=== PATIENT | female | born 1965 | race Caucasian/White ===

== ENCOUNTER 2017-09-22 09:21 | Day surgery (SDC) | payer OTHER ==
[~2017-09-22] VITALS: Ht 175.3 cm; Wt 97.1 kg
[~2017-09-22 09:21] MED LIST: NO MEDICATIONS
[2017-09-22] MEDS ORDERED: NS 1,000 ML IV ONE (09:30)
[2017-09-22] MEDS ORDERED: LIDOCAINE 2% INJ 100 MG/5 ML SDV (FOR ANES.) As Ordered ONE (10:29)
[2017-09-22] MEDS ORDERED: PROPOFOL 500 MG/50 ML VIAL As Ordered ONE (10:29)
--- NOTE | 2017-09-22 10:51 | ROOR ---
Patient Name: Isela Lam Procedure Date: 09/22/2017 10:24 AM Date of : 1965 Age: 52 Room: [facility] Gender: Female Note Status: Finalized Procedure: Total Colonoscopy to cecum + Biopsy Polypectomy Indications: High risk colon cancer surveillance: Personal history of colonic polyps, Last colonoscopy: 2013 Providers: Tommy Miles MD Referring MD: Erin Haque NP Requesting Provider: Medicines: Monitored Anesthesia Care Complications: No immediate complications. Procedure: Pre-Anesthesia Assessment: - The heart rate, respiratory rate, oxygen saturations, blood pressure, adequacy of pulmonary ventilation, and response to care were monitored throughout the procedure. The Colonoscope was introduced through the anus and advanced to the cecum, identified by appendiceal orifice and ileocecal valve. The colonoscopy was performed without difficulty. The patient tolerated the procedure well. The quality of the bowel preparation was good. Findings: The perianal and digital rectal examinations were normal. Hemorrhoids were found during retroflexion. The hemorrhoids were small and Grade I (internal hemorrhoids that do not prolapse). Scattered small-mouthed diverticula were found in the recto-sigmoid colon, sigmoid colon and descending colon. A small polyp was found at 50 cm proximal to the anus. The polyp was carpet-like. The polyp was removed with a jumbo cold forceps. Resection and retrieval were complete. A small polyp was found in the hepatic flexure. The polyp was sessile. The polyp was removed with a jumbo cold forceps. Resection and retrieval were complete. The exam was otherwise without abnormality on direct and retroflexion views. Impression: - Hemorrhoids. - Diverticulosis in the recto-sigmoid colon, in the sigmoid colon and in the descending colon. - One small polyp at 50 cm proximal to the anus, removed with a jumbo cold forceps. Resected and retrieved. - One small polyp at the hepatic flexure, removed with a jumbo cold forceps. Resected and retrieved. - The examination was otherwise normal on direct and retroflexion views. - The exam was otherwise normal to the cecum. Recommendation: - Patient has a contact number available for emergencies. The signs and symptoms of potential delayed complications were discussed with the patient. Return to normal activities tomorrow. Written discharge instructions were provided to the patient. - High fiber diet. - Discharge patient to home. - Continue present medications. - Await pathology results. - Telephone GI clinic for pathology results in 1 week. - Repeat colonoscopy for surveillance based on pathology results. - Return to referring physician. - The findings and recommendations were discussed with the patient's family. Tommy Miles MD Tommy Miles MD 09/22/2017 10:51:42 AM This report has been signed electronically. Number of Addenda: 0 Note Initiated On: 09/22/2017 10:24 AM Estimated Blood Loss: Estimated blood loss: none.
[2017-09-22 11:27] VITALS: BP 137/70
== END 2017-09-22 11:25 | disposition home or self-care (01) ==
LOC: M OPP 09:21
PROVIDERS: ATTEND Internal Medicine Gastroenterology
DX: Z12.11 Encounter for screening for malignant neoplasm of colon (principal); Z86.010 Personal history of colon polyps; D12.5 Benign neoplasm of sigmoid colon; D12.3 Benign neoplasm of transverse colon; K64.0 First degree hemorrhoids; K57.30 Diverticulosis of large intestine without perforation or abscess without bleeding; F17.210 Nicotine dependence, cigarettes, uncomplicated

== ENCOUNTER → 2018-03-08 | Outpatient (REF) | payer OTHER ==
[2018-03-09 08:06] LABS: LDL DIRECT 73 mg/dL (0-99)
== END ==
LOC: M LAB REF 12:39
DX: Z13.220 Encounter for screening for lipoid disorders (principal)
CPT/HCPCS: 83721

== ENCOUNTER 2019-04-21 05:45 | Day surgery (SDC) | payer OTHER ==
[~2019-04-21] VITALS: Ht 175.3 cm; Wt 89.7 kg
[~2019-04-21 05:45] MED LIST changes: +PHEN30CA2 PO
[2019-04-21] MEDS ORDERED: LIDOCAINE 1% MDV 20ML VIAL SQ PRN (06:00)
[2019-04-21] MEDS ORDERED: LR 1,000 ML IV ONE (06:00)
[2019-04-21 06:58] LABS: URINE PREG TEST NEGATIVE (NEGATIVE)
[2019-04-21] MEDS ORDERED: BUPIVACAINE HCL 0.5% 10 ML VIAL As Ordered ONE ×2 (07:00→07:49)
[2019-04-21] MEDS ORDERED: dexameTHASONE 4 MG/ML 1ML VIAL (J1100) As Ordered ONE (07:00)
[2019-04-21] MEDS ORDERED: LIDOCAINE 2% MDV 20 ML VIAL As Ordered ONE (07:01)
[2019-04-21] MEDS ORDERED: BACITRACIN PWD 50,000 UNITS VIAL As Ordered ONE (07:01)
[2019-04-21] MEDS ORDERED: NEOSPORIN GU IRRIG 20 ML VIAL As Ordered ONE (07:02)
[2019-04-21] MEDS ORDERED: MIDAZOLAM INJ 2 MG/2 ML VIAL (J2250) As Ordered ONE (07:45)
[2019-04-21] MEDS ORDERED: GLYCOPYRROLATE INJ 0.2 MG/ML 2 ML VIAL As Ordered ONE (07:45)
[2019-04-21] MEDS ORDERED: fentaNYL 100 MCG/2 ML INJECTION (J3010) As Ordered ONE (07:45)
[2019-04-21] MEDS ORDERED: ONDANSETRON 4MG/2ML VIAL (J2405) As Ordered ONE (07:45)
[2019-04-21] MEDS ORDERED: KETAMINE HCL 200 MG/20 ML VIAL As Ordered ONE ×3 (07:45→09:04)
[2019-04-21] MEDS ORDERED: LIDOCAINE 2% INJ 100 MG/5 ML SDV (FOR ANES.) As Ordered ONE (07:45)
[2019-04-21] MEDS ORDERED: PROPOFOL 200 MG/20 ML VIAL As Ordered ONE ×5 (07:45→09:10)
[2019-04-21 10:15] VITALS: BP 177/86
[2019-04-21] MEDS ORDERED: fentaNYL 100 MCG/2 ML INJECTION (J3010) IV PRN (10:30)
[2019-04-21] MEDS ORDERED: oxyCODONE 5MG TAB PO PRN (10:30)
[2019-04-21] MEDS ORDERED: LR 1,000 ML IV SCH (10:30)
--- NOTE | 2019-04-21 10:34 | REP ---
Left foot: Three views. History: Postop. Findings: Three views of the left foot are obtained through overlying cast material. The patient is status post first and fifth metatarsal bunion repair with osteotomies and metallic pins and screws in place. There is a plantar calcaneal spur. Electronically Signed by Isiah Baron MD 04/21/2019 12:32 P
--- NOTE | 2019-04-23 13:08 | RO ---
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 PROCEDURES PERFORMED: 1. John bunionectomy, internal screw fixation 3.0 x 22 mm x 1 left foot. 2. Bunionette procedure with distal and elevational Ludloff-type osteotomy with internal screw fixation. The fixation is 2.4 headed screw fixation x 10 and a 0.86 mm wire. SURGEON: Dr. Sony Foreman DPM MILK CONDENSER: None. ANESTHESIA: Local monitored anesthesia care (MAC). IRRIGATION: Dilute bacitracin, neomycin and polymyxin B solution. HEMOSTASIS: Ankle pneumatic tourniquet at 250 mmHg for 100 minutes. DESCRIPTION OF PROCEDURE: On 04/21/2019, this 53-year-old white female was taken from her hospital room to the operating room and placed on the operating table in the supine position. Following the induction of IV sedation and local and regional anesthesia, the left lower extremity was prepped and draped in the usual aseptic manner. Attention was directed to the patient's foot where there was noted to be a hallux valgus deformity. At this time, a 5 cm incision was placed over the 1st metatarsophalangeal joint lateral to the extensor tendon. The incision was deepened through the subcutaneous tissues and all coursing venous tributaries were identified, underscored, clamped, cut, ligated and electrocoagulated as necessary. A linear capsulotomy was performed in the same plane as the original skin incision, and the capsular and periosteal structures were dissected free dorsally, medially, and laterally thus creating a capsular periosteal-type envelope. This delivered into view the hypertrophied medial eminence of the 1st metatarsal, which was osteotomized from distal to proximal, through and through and extirpated from the wound in toto. Dissection was then carried into the 1st intermetatarsal space where dissection was carried down to the level of the fibular sesamoid where the conjoined tendon was sharply dissected free from the fibular sesamoid. Attention was directed to the medial surface of the 1st metatarsal, and a V-shaped osteotomy was performed with a long plantar and short dorsal wing. Upon creation of the osteotomy in the distal metaphysis of the 1st metatarsal, the osteotomy was transposed approximately 40% of the width of the shaft of the 1st metatarsal and fixated with an Arthrex headless 3.0 x 22 mm cannulated compression screw. The osteotomy was noted to be stable in all three cardinal planes. The redundant cortical spike was osteotomized from dorsal to plantar, through and through, and extirpated from the wound in toto. The medial surface was rasped to a smooth contour with a handheld rasp. The wound was flushed with copious amounts of dilute bacitracin, neomycin and polymyxin B solution. Attention was directed towards closure where the capsular structures were coapted and maintained utilizing #2-0 Monocryl in a simple interrupted type fashion. Subcutaneous tissue coapted and maintained utilizing #4-0 Monocryl in a simple interrupted type fashion. Skin incisions coapted and maintained utilizing #5-0 Monocryl in a continuous subcuticular type fashion. Attention was then directed to the lateral surface of the foot where the following procedure was performed; BUNIONETTE PROCEDURE WITH LUDLOFF OSTEOTOMY AND INTERNAL SCREW AND PIN FIXATION LEFT FOOT: Attention was directed to the patient's left foot. There was noted to be a hyperkeratotic lesion present on the distal lateral aspect of the 5th metatarsal head. At this time, a 6 cm incision was placed on the lateral surface of the 5th metatarsophalangeal joint. The incision was deepened through subcutaneous tissues and all coursing venous tributaries were identified, underscored, clamped, cut, ligated and electrocoagulated as necessary. A linear capsulotomy was performed in the same plane as the original skin incision. The capsular and periosteal structures were then dissected free in one continuous layer dorsally, medially and laterally, thus creating a capsular periosteal type envelope. This delivered into view the hypertrophied lateral eminence of the 5th metatarsal, which was osteomized from distal to proximal, through and through. Attention was then directed to the shaft of the 5th metatarsal where Ludloff osteotomy was performed. It was orientated with the distal cut being inferior and the superior cut present proximally. The osteotomy was angled in such a way that medial positioning would give elevational displacement of the 5th metatarsal head. The osteotomy was fixated at the distal end with a K-wire, and the distal aspect of the cut was then completed. This allowed swiveling of the distal fragment, and this was swiveled, reducing the intermetatarsal angle as well as elevating the 5th metatarsal. This was then fixated with a 2.5 x 10 mm headed compression screw. Additional fixation was then obtained with a 3.0 x 22 mm compression screw. This distal screw was providing good compression; however, on tightening of the more proximal screw, there was noted to be a crack along the superior aspect of the osteotomy. This was rongeured away giving little hold of the more proximal screw. Utilizing a K-wire, a fixation was obtained on the more proximal segment. Utilizing C-arm imagery, good reduction and position of the hardware was noted. The wound was flushed with copious amounts of dilute bacitracin, neomycin and polymyxin B solution. Capsular closure was obtained with #2-0 Monocryl in a simple interrupted type fashion. Subcutaneous tissues were coapted and maintained utilizing #4-0 Monocryl in a simple interrupted type fashion, skin incisions were coapted and maintained utilizing #5-0 Monocryl in a continuous subcuticular type fashion. This was additionally reinforced with Steri-Strips. Attention was directed towards bandaging where a compressive bandage was applied consisting of Adaptic, 4 x 4s, 4 x 4 splints, Diana and Kerlix. A well-molded fiberglass cast was then placed on the patient's foot with the foot at a ring angle to the lower leg. Upon deflation of the tourniquet, instantaneous capillary filling time was noted to the patient's left foot. The patient having apparently tolerated the surgical procedure well was taken from the operating room (OR) to the recovery room for further monitoring by the anesthesia department. KING
== END 2019-04-21 11:48 | disposition home or self-care (01) ==
LOC: M SDC 05:45
PROVIDERS: ATTEND Podiatrist
DX: M21.622 Bunionette of left foot (principal); L84 Corns and callosities; M20.12 Hallux valgus (acquired), left foot; M79.672 Pain in left foot; Z79.899 Other long term (current) drug therapy; F17.210 Nicotine dependence, cigarettes, uncomplicated
CPT/HCPCS: 28110; 28296; 73630; 84703; 88300; 97116; C1713; J0690; J1100; J2250; J2405; J3010

== ENCOUNTER → 2020-01-05 | Outpatient (REF) | payer BC ==
[~2020-01-05] MED LIST changes: +ACET1TAB55 PO; +AUGM875T28 PO; +CLEO300C2 PO; +PROB1CAP10 PO
== END ==
LOC: M LAB REF 19:59
PROVIDERS: ATTEND Physician Assistant
DX: J02.9 Acute pharyngitis, unspecified (principal)

== ENCOUNTER 2020-01-06 18:39 | Inpatient (IN) | payer BC ==
[~2020-01-06] VITALS: Ht 175.3 cm; Wt 90.2 kg
[~2020-01-06 18:39] MED LIST changes: -ACET1TAB55 PO; -AUGM875T28 PO; -CLEO300C2 PO; -PROB1CAP10 PO
[2020-01-06] MEDS ORDERED: AUGM875T28 PO (18:48)
[2020-01-06] MEDS ORDERED: NS 1,000 ML IV ONE (19:30)
[2020-01-06] MEDS ORDERED: ACETAMINOPHEN 325 MG TAB PO ONE (19:45)
[2020-01-06 19:46] LABS: HEMATOCRIT 44.3 % (36.0-47.0); HEMOGLOBIN 14.8 g/dl (12.0-15.5); MEAN CORPUSCULAR HEMOGLOBIN 31.2 pg (27.0-33.0); MEAN CORPUSCULAR HGB CONC 33.4 g/dl (32.0-36.5); MEAN CORPUSCULAR VOLUME 93.5 fl (80.0-96.0); PLATELET COUNT, AUTOMATED 292 10^3/uL (150-450); RED BLOOD COUNT 4.74 10^6/uL (4.00-5.40); WHITE BLOOD COUNT 16.3 10^3/uL (4.0-10.0)
[2020-01-06 19:56] LABS: INR 1.07; PROTHROMBIN TIME 13.6 SECONDS (11.8-14.0)
[2020-01-06 20:15] LABS: BLOOD UREA NITROGEN 10 MG/DL (7-18); CALCIUM LEVEL 8.8 MG/DL (8.5-10.1); CARBON DIOXIDE LEVEL 24 MEQ/L (21-32); CHLORIDE LEVEL 105 MEQ/L (98-107); GLOMERULAR FILTRATION RATE > 60.0 (>51); GLUCOSE, FASTING 120 MG/DL (70-100); SODIUM LEVEL 138 MEQ/L (136-145)
[2020-01-06] MEDS ORDERED: ISOVUE-370 76% 100ML VIAL (Q9967) As Ordered ONE (20:30)
--- NOTE | 2020-01-06 21:07 | REPVR ---
PROCEDURE INFORMATION: Exam: CT Neck With Contrast Exam date and time: 01/06/2020 8:36 PM Age: 54 years old Clinical indication: Throat pain; Additional info: Left abscess TECHNIQUE: Imaging protocol: Computed tomography images of the neck with intravenous contrast. Radiation optimization: All CT scans at this facility use at least one of these dose optimization techniques: automated exposure control; mA and/or kV adjustment per patient size (includes targeted exams where dose is matched to clinical indication); or iterative reconstruction. Contrast material: ISOVUE 370; Contrast volume: 75 ml; Contrast route: IV; COMPARISON: No relevant prior studies available. FINDINGS: Sinuses: Mild mucosal thickening of the left maxillary sinus. Minimal mucosal thickening of a few left ethmoid air cells. Nasopharynx: Unremarkable. Oropharynx: There is swelling of the left palatine tonsil. within this region and extending to the soft palate, there is an area of hypodensity measuring approximately 2.5 x 1.4 x 1.3 cm. This is concerning for abscess. Phlegmonous change is within the differential. There is associated mild narrowing of the airway. Hypopharynx: There is effacement of the left pyriform sinus. Abnormal hypodensity is identified within this region, likely representing phlegmonous change although abscess cannot be excluded. There is swelling of the posterior hypopharyngeal wall, most significant on the left side. This swelling extends to the retropharyngeal region. Larynx: There is effacement of the left vallecula, with swelling. Retropharyngeal space: See above. Submandibular/Parotid glands: Unremarkable. Glands are normal in size. Thyroid: Hypodense thyroid nodules are identified, the largest measuring 9 mm within the right thyroid lobe. Lymph nodes: Enlarged left level 2, 3, and 5 cervical lymph nodes are identified. A left level 3 lymph node measures 1.3 by 0.6 cm. Scattered additional small cervical lymph nodes are identified. Trachea: Unremarkable. Lungs: Unremarkable as visualized. Bones/joints: Slight reversal of the lordotic curvature of the cervical spine. Spondylosis identified within the cervical and upper thoracic spine. Soft tissues: Swelling of the soft tissues of the neck on the left side. IMPRESSION: 1. There is swelling of the left palatine tonsil. within this region and extending to the soft palate, there is an area of hypodensity measuring approximately 2.5 x 1.4 x 1.3 cm. This is concerning for abscess. Phlegmonous change is within the differential. There is associated mild narrowing of the airway. 2. Swelling of the soft tissues of the neck on the left side. 3. There is effacement of the left vallecula, with swelling. 4. There is effacement of the left pyriform sinus. Abnormal hypodensity is identified within this region, likely representing phlegmonous change, although abscess cannot be excluded. 5. Enlarged left level 2, 3, and 5 cervical lymph nodes are identified. 6. There is swelling of the posterior hypopharyngeal wall, most significant on the left side. This swelling extends to the retropharyngeal region. 7. Hypodense thyroid nodules are identified, the largest measuring 9 mm within the right thyroid lobe. 8. Additional findings described above. COMMENTS: Consistent with the [employer]'s Incidental Findings Committee white paper (J Am Vishal Radiol 2015): In patients aged 35 years and older with an incidental thyroid nodule equal to or greater than 1.[address], MRI or extrathyroidal US, further evaluation with dedicated thyroid US is recommended for patients with normal life expectancy and without comorbidities. For smaller nodules without suspicious features, no further evaluation or follow up is recommended. Electronically signed by: Alec Berger On 01/06/2020 21:06:40 PM
[2020-01-06] MEDS ORDERED: PIPERACILLIN/TAZOBACTAM SOD 3.375 GM in D5W MINI-BAG PLUS 50 ML IV ONE (21:15)
[2020-01-06] MEDS ORDERED: KETOROLAC 30 MG/ML VIAL (J1885) IV PRN (22:15)
[2020-01-06] MEDS ORDERED: ACETAMINOPHEN TAB 650MG DOSE (2X325MG) PO PRN (22:15)
--- NOTE | 2020-01-06 22:48 | HPEPDOC ---
[facility] Medical History & Physical Date of Admission Jan 06, 2020 Date of Service: Jan 06, 2020 Primary Care Physician: Erin Haque Attending Physician: VISHAL CARDONA MD History and Physical CHIEF COMPLAINT: Sore throat HISTORY OF PRESENT ILLNESS: Patient is a 54 year old female who presented to the [facility] ER with complaint of worsening throat and swelling. She states that about one week ago she had developed a sore throat. She had originally presented to the Urgent Care where she received a shot of Rocephin and a course of Augmentin. She stated that since that time she continued to have a sore throat and noticed some difficulty swallowing liquids. She returned to the Urgent Care on Wednesday where she received a second shot of Rocephin. She was then instructed that if her sore throat did not improve by the next day to report to the ER. Today the patient reports to the ER as she has a continued sore throat described as sharp in pain. She states that she does not choke and has no issues breathing however it is a little more difficult to swallow liquids. She denies any chills however states that urgent care had told her she had a fever. She denies any nausea, vomiting, diarrhea or constipation. She denies any history of tooth abscess. She denies any foul smelling breath or drainage in her throat. In the ER the patient was found to be hypertensive but otherwise vitally stable. She received tylenol for pain which helped relieve her hypertension. She had a leukocytosis of 16.3. She received a head and neck CT which demonstrated swelling of the left palatine tonsil extending to the soft palate and a hypodense area measuring 2.5 x 1.4 x 1.3 cm concerning for an abscess formation. ENT was contacted through the ER with recommendations to start the patient on Zosyn. Hospitalist service was consulted for further evaluation and management. PAST MEDICAL HISTORY: 1. Varicose Veins PAST SURGICAL HISTORY: 1. Left Foot Bunion Surgery 2. Bilateral Vein Stripping 3. Colonoscopy ~ 5 years ago SOCIAL HISTORY: Patient lives at home with her boyfriend. 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 She is a current smoker and started smoking at the age of 16. She smokes about 1/2 packs per day. She drinks alcohol on occasion. She denies any history of IV or illicit drug use FAMILY HISTORY: Patients mother and father are alive and well. She denies any medical conditions in her mother. Her father has a history of a TIA in the past ALLERGIES: Please see below. REVIEW OF SYSTEMS: CONSTITUTIONAL: Admits to fever. Denies chills. Denies unintentional weightloss. Denies night sweats HEENT: Admits to sore throat. Admits to difficulty swallowing liquids. Denies choking or coughing. Admits to mild tenderness on the left side of her neck CARDIOVASCULAR: Denies chest pain, palpitations, or feelings of he heart racing RESPIRATORY: Denies shortness of breath. Denies coughing or wheezing GASTROINTESTINAL: Denies abdominal pain. Denies diarrhea, constipation, nausea, or vomiting GENITOURINARY: Denies dysuria, urgency, or increased frequency SKIN: Denies any rashes or lesions MUSCULOSKELETAL: Denies any muscle pain or weakness NEUROLOGICAL: Denies any changes in speech or gait. PSYCHIATRIC: Denies depression or anxiety ENDOCRINE: Denies heat or cold intolerance. Denies history of diabetes HEMATOLOGIC/LYMPHATIC: Denies easy bruising or bleeding. Denies history of DVT or PE HOME MEDICATIONS: Please see below. PHYSICAL EXAMINATION: VITAL SIGNS: Temperature 100.1, pulse 122, respiratory rate 24, blood pressure 186/85, pulse oximetry 97% on room air. GENERAL APPEARANCE: Patient is awake, alert, and oriented. She is lying in bed comfortably. She does not appear in any acute distress. HEENT: Left sided facial swelling. Palpable submandibular and superficial cervical lymphadenopathy on the left. Oral examination reveals Mallampati score of II-III worsened by left tonsillar swelling with slight deviation of the uvula to the right. The posterior pharynx is mildly erythematous. There is no pasquale puss or drainage. Dentition appears within normal limits. Phonation is normal without any muffling CARDIOVASCULAR: Normal S1, S2. Slightly tachycardic. Regular rhythm. No clicks rubs or murmurs LUNGS: Clear vesicular breath sounds bilaterally with good respiratory effort. No wheezes, rhonchi, or rales. ABDOMEN: Soft, nondistended. Nontender. No rebound tenderness or guarding. Normoactive bowel sounds throughout EXTREMITIES: No edema. Varicose veins bilaterally. Full and equal pulses in bila teral upper and lower extremities NEUROLOGICAL: No focal neurological deficits PSYCHIATRIC: Mood and affect appear appropriate LABORATORY DATA: See below. IMAGING: PROCEDURE INFORMATION: Exam: CT Neck With Contrast Exam date and time: 01/06/2020 8:36 PM Age: 54 years old Clinical indication: Throat pain; Additional info: Left abscess TECHNIQUE: Imaging protocol: Computed tomography images of the neck with intravenous contrast. Radiation optimization: All CT scans at this facility use at least one of these dose optimization techniques: automated exposure control; mA and/or kV adjustment per patient size (includes targeted exams where dose is matched to clinical indication); or iterative reconstruction. Contrast material: ISOVUE 370; Contrast volume: 75 ml; Contrast route: IV; COMPARISON: No relevant prior studies available. FINDINGS: Sinuses: Mild mucosal thickening of the left maxillary sinus. Minimal mucosal thickening of a few left ethmoid air cells. Nasopharynx: Unremarkable. Oropharynx: There is swelling of the left palatine tonsil. within this region and extending to the soft palate, there is an area of hypodensity measuring approximately 2.5 x 1.4 x 1.3 cm. This is concerning for abscess. Phlegmonous change is within the differential. There is associated mild narrowing of the airway. Hypopharynx: There is effacement of the left pyriform sinus. Abnormal hypodensity is identified within this region, likely representing phlegmonous change although abscess cannot be excluded. There is swelling of the posterior hypopharyngeal wall, most significant on the left side. This swelling extends to the retropharyngeal region. Larynx: There is effacement of the left vallecula, with swelling. Retropharyngeal space: See above. Submandibular/Parotid glands: Unremarkable. Glands are normal in size. Thyroid: Hypodense thyroid nodules are identified, the largest measuring 9 mm within the right thyroid lobe. Lymph nodes: Enlarged left level 2, 3, and 5 cervical lymph nodes are identified. A left level 3 lymph node measures 1.3 by 0.6 cm. Scattered additional small cervical lymph nodes are identified. Trachea: Unremarkable. Lungs: Unremarkable as visualized. Bones/joints: Slight reversal of the lordotic curvature of the cervical spine. Spondylosis identified within the cervical and upper thoracic spine. Soft tissues: Swelling of the soft tissues of the neck on the left side. IMPRESSION: 1. There is swelling of the left palatine tonsil. within this region and extending to the soft palate, there is an area of hypodensity measuring approximately 2.5 x 1.4 x 1.3 cm. This is concerning for abscess. Phlegmonous change is within the differential. There is associated mild narrowing of the airway. 2. Swelling of the soft tissues of the neck on the left side. 3. There is effacement of the left vallecula, with swelling. 4. There is effacement of the left pyriform sinus. Abnormal hypodensity is identified within this region, likely representing phlegmonous change, although abscess cannot be excluded. 5. Enlarged left level 2, 3, and 5 cervical lymph nodes are identified. 6. There is swelling of the posterior hypopharyngeal wall, most significant on the left side. This swelling extends to the retropharyngeal region. 7. Hypodense thyroid nodules are identified, the largest measuring 9 mm within the right thyroid lobe. 8. Additional findings described above. COMMENTS: Consistent with the [employer]'s Incidental Findings Committee white paper (J Am Vishal Radiol 2015): In patients aged 35 years and older with an incidental thyroid nodule equal to or greater than 1.[address], MRI or extrathyroidal US, further evaluation with dedicated thyroid US is recommended for patients with normal life expectancy and without comorbidities. For smaller nodules without suspicious features, no further evaluation or follow up is recommended. Electronically signed by: Alec Berger On 01/06/2020 21:06:40 PM MICROBIOLOGY: Please see below. ASSESSMENT: Patient is a 54 year old female presenting to the [facility] ER with complaint of worsening sore throat who was found to have a left sided peritonsillar abscess and failed outpatient antibiotic therapy . PLAN: 1. Left sided Peritonsillar Abscess -Left sided peritonsillar abscess on CT imaging. Patient has failed outpa tient antibiotics therapy with Rocephin and Augmentin -ENT consulted through ER and stated they will see the patient in the morning. Recommendations to start Zosyn while inpatient -Tylenol for pain and Fever -Toradol for Pain PRN -Mallampati score 2-3 complicated by left tonsillar swelling with right uvula deviation. No emergent threat to airway -Throat Cultures pending -CRP pending 2. Leukocytosis -Likely secondary to patients left sided peritonsillar abscess. Will continue to trend with therapy 3. Hypertension likely 2/2 pain -Patient denies history of hypertension. She is on no antihypertensives at home. On arrival her BP was 185/85. This was likely secondary to pain. Her BP has decreased to 136/63 with Tylenol. Will continue to monitor 4. DVT Prophylaxis -TEDS and Sequentials ATTENDING PHYSICIAN ATTESTATION: I performed a history and physical exam of the patient and discussed her management with the resident. I reviewed the resident's note and agree with the documented findings and plan of care as written above. Exceptions include the followinF with no relevant medical history, presents to the ER after failed outpatient treatment for peritonsillar abscess. Imaging reveals large peritonsillar abscess on the left side. On exam, left sided, tonsils appear to be swollen but has been no obstruction in her airway. She is saturating on a percent on room air at this time and able to speak in complete sentences. ENT evaluation was called for by the ER and will see in the morning. Patient to be started on IV Zosyn and pain control be given with Toradol as needed. Rest. The plan as per above Vital Signs Vital Signs Date Time Temp Pulse Resp B/P (MAP) Pulse Ox O2 Delivery O2 Flow Rate FiO2 01/06/20 21:59 100.1 01/06/20 19:44 01/06/20 18:39 122 24 97 Room Air Laboratory Data Labs 24H Laboratory Tests 2 01/06/20 19:38: Nucleated Red Blood Cells % (auto) 0.0, Prothrombin Time 13.6, Prothromb Time I nternational Ratio 1.07, Anion Gap 9, Glomerular Filtration Rate > 60.0, Calcium Level 8.8 CBC/BMP Laboratory Tests 01/06/20 19:38 Microbiology Microbiology 01/06/20 Blood Culture, Received Pending Home Medications Scheduled Amoxicillin/Potassium Clav (Augmentin 875-125 Tablet) 1 Each Tablet, 1 TAB PO BID Allergies Coded Allergies: No Known Allergies (Unverified , 09/21/17) A-FIB/CHADSVASC A-FIB History Current/History of A-Fib/PAF?: No BUSTER HAUSER DO Jan 06, 2020 22:48 VISHAL CARDONA MD Jan 06, 2020 23:51
[2020-01-06 23:38] VITALS: BP 152/77
[2020-01-07] MEDS: PIPERACILLIN/TAZOBACTAM SOD 3.375 GM in D5W MINI-BAG PLUS 50 ML IV SCH ×4 (03:50→22:35)
[2020-01-07 05:25] LABS: HEMOGLOBIN 13.5 g/dl (12.0-15.5); MEAN CORPUSCULAR HEMOGLOBIN 31.5 pg (27.0-33.0); MEAN CORPUSCULAR HGB CONC 32.9 g/dl (32.0-36.5); MEAN CORPUSCULAR VOLUME 95.6 fl (80.0-96.0); PLATELET COUNT, AUTOMATED 258 10^3/uL (150-450); RED BLOOD COUNT 4.29 10^6/uL (4.00-5.40); WHITE BLOOD COUNT 11.3 10^3/uL (4.0-10.0)
[2020-01-07 05:44] LABS: BLOOD UREA NITROGEN 9 MG/DL (7-18); CALCIUM LEVEL 8.5 MG/DL (8.5-10.1); CARBON DIOXIDE LEVEL 26 MEQ/L (21-32); CHLORIDE LEVEL 106 MEQ/L (98-107); CREATININE FOR GFR 0.64 MG/DL (0.55-1.30); GLOMERULAR FILTRATION RATE > 60.0 (>51); GLUCOSE, FASTING 104 MG/DL (70-100); SODIUM LEVEL 138 MEQ/L (136-145)
[2020-01-07 08:00] VITALS: BP 148/82
--- NOTE | 2020-01-07 13:18 | IPNPDOC ---
Date Seen The patient was seen on 01/07/20. Progress Note SUBJECTIVE: Pain with swallowing still and patient states that fluids " go up her nose" when she is trying to swallow. ENT to see today. Denies shortness of breath, n/v/d, fevers since last evening. OBJECTIVE: VITAL SIGNS: Please see below PHYSICAL EXAMINATION: CONSTITUTIONAL: No acute distress, resting comfortably, AAO x 3 EYES: PERRLA, EOM intact HENT, MOUTH: Normocephalic, moist mucous membranes, beefy red left tonsil with uvula deviation. No exudate noticed, no draining lesion. NECK: SUPPLE, no JVD, no lymphadenopathy, no carotid bruit CV: Regular rate and rhythm, S1S2 normal, no murmurs/rubs/gallops RESPIRATORY: Clear to auscultation bilaterally, no rales/rhonchi/wheezes GI: BS positive in 4 quadrants, soft, nontender, nondistended, no rebound or guarding, no organomegaly : Deferred MUSCULOSKELETAL: Normal ROM. No cyanosis, clubbing, swelling, joint deformity, extremity edema INTEGUMENTARY: Intact, no rashes, no lesions, no erythema NEUROLOGIC: Cranial Nerves II-XII are intact, no focal deficits PSYCHIATRIC: Mood and affect are normal CURRENT MEDICATIONS: Please see below LABORATORY DATA: Please see below IMAGING: No new imaging. ASSESSMENT: 54 y/o F admitted under inpatient status for left peritonsillar abscess. PLAN: 1. Left peritonsillar abscess. WBC improving, afebrile since 9 PM 01/06/20; however, still difficulty swallowing. ENT to assess today. Starting on dexamet hasone 8 mg PO Q8hrs, C/w zosyn, tylenol, toradol, clear liquid diet, daily labs. F/u throat culture. 2. HTN. Stable. 3. DVT px. SCDs, TEDs. DISPOSITION: Admitted under inpatient status. Plan is discharge home when medically improved. VS, I&O, 24H, Fishbone Vital Signs/I&O Vital Signs Date Time Temp Pulse Resp B/P (MAP) Pulse Ox O2 Delivery O2 Flow Rate FiO2 01/07/20 08:00 97.1 89 18 148/82 (104) 97 Room Air I&O- Last 24 Hours up to 6 AM 01/07/20 06:00 Intake Total 1100 ml Output Total 300 ml Balance 800 ml Laboratory Data 24H LABS Laboratory Tests 2 01/06/20 19:38: Nucleated Red Blood Cells % (auto) 0.0, Prothrombin Time 13.6, Prothromb Time International Ratio 1.07, Anion Gap 9, Glomerular Filtration Rate > 60.0, Calcium Level 8.8, C-Reactive Protein, Quantitative 13.20H 01/07/20 04:57: Nucleated Red Blood Cells % (auto) 0.0, Anion Gap 6L, Glomerular Filtration Rate > 60.0, Calcium Level 8.5 CBC/BMP Laboratory Tests 01/06/20 19:38 01/07/20 04:57 Microbiology Microbiology 01/06/20 Eye/Ear/Nose/Throat Culture, Received Pending 01/06/20 Blood Culture, Received Pending Current Medications Current Medications Medications (Trade) Dose Ordered Sig/Julián Route PRN Reason Start Time Stop Time Status Last Admin Dose Admin Acetaminophen (Tylenol Tab) 650 mg Q6HP PRN PO PAIN / FEVER 01/06/20 22:15 01/07/20 10:12 Home Med (Med Rec Complete!) ASDIRECTED XX 01/06/20 22:30 01/06/20 22:20 DC Ketorolac Tromethamine (ToRADol) 15 mg Q6H PRN IV PAIN 01/06/20 22:15 01/11/20 22:14 Piperacillin Sod/ Tazobactam Sod 3.375 gm/Dextrose 50 ml @ 50 mls/hr Q6H IV 01/07/20 04:00 01/07/20 10:05 Allergies Coded Allergies: No Known Allergies (Unverified , 09/21/17) Guerda Benedict MD Jan 07, 2020 13:18
[2020-01-07] MEDS: dexameTHASONE 4 MG/ML 1ML VIAL (J1100) IV SCH ×2 (15:28→22:13)
[2020-01-07 16:45] VITALS: BP 128/63
[2020-01-07 20:00] VITALS: BP 115/56
[2020-01-08 04:00] VITALS: BP 128/75
[2020-01-08] MEDS: PIPERACILLIN/TAZOBACTAM SOD 3.375 GM in D5W MINI-BAG PLUS 50 ML IV SCH ×2 (04:17→09:41)
[2020-01-08] MEDS: dexameTHASONE 4 MG/ML 1ML VIAL (J1100) IV SCH (05:50)
[2020-01-08 06:24] LABS: HEMATOCRIT 42.5 % (36.0-47.0); HEMOGLOBIN 14.3 g/dl (12.0-15.5); MEAN CORPUSCULAR HEMOGLOBIN 31.6 pg (27.0-33.0); MEAN CORPUSCULAR HGB CONC 33.6 g/dl (32.0-36.5); PLATELET COUNT, AUTOMATED 311 10^3/uL (150-450); RED BLOOD COUNT 4.52 10^6/uL (4.00-5.40); WHITE BLOOD COUNT 7.3 10^3/uL (4.0-10.0)
[2020-01-08 06:51] LABS: BLOOD UREA NITROGEN 13 MG/DL (7-18); CALCIUM LEVEL 9.2 MG/DL (8.5-10.1); CARBON DIOXIDE LEVEL 27 MEQ/L (21-32); CHLORIDE LEVEL 103 MEQ/L (98-107); CREATININE FOR GFR 0.69 MG/DL (0.55-1.30); GLOMERULAR FILTRATION RATE > 60.0 (>51); GLUCOSE, FASTING 136 MG/DL (70-100); POTASSIUM SERUM 4.5 MEQ/L (3.5-5.1); SODIUM LEVEL 137 MEQ/L (136-145)
[2020-01-08 08:07] LABS: C REACTIVE PROTEIN QUANTITATIV 6.73 MG/DL (0.00-0.30)
[2020-01-08 09:00] VITALS: BP 134/75
[2020-01-08 09:12] LABS: ERYTHROCYTE SEDIMENTATION RATE 56 mm/hr (0-30)
[2020-01-08] MEDS ORDERED: ACET1TAB55 PO (10:03)
[2020-01-08] MEDS ORDERED: CLEO300C2 PO (10:03)
[2020-01-08] MEDS ORDERED: PROB1CAP10 PO (10:03)
--- NOTE | 2020-01-08 14:20 | DS.PDOC ---
Discharge Summary General Date of Admission Jan 06, 2020 at 22:44 Date of Discharge 01/08/20 Primary Care Physician: Erin Haque Attending Physician: Guerda Benedict MD Discharge Summary HISTORY OF PRESENT ILLNESS: Patient is a 54 year old female who presented to the [facility] ER with complaint of worsening throat and swelling. She states that about one week ago she had developed a sore throat. She had originally presented to the Urgent Care where she received a shot of Rocephin and a course of Augmentin. She stated that since that time she continued to have a sore throat and noticed some difficulty swallowing liquids. She returned to the Urgent Care on Wednesday where she received a second shot of Rocephin. She was then instructed that if her sore throat did not improve by the next day to report to the ER. Today the patient reports to the ER as she has a continued sore throat described as sharp in pain. She states that she does not choke and has no issues breathing however it is a little more difficult to swallow liquids. She denies any chills however states that urgent care had told her she had a fever. She denies any nausea, vomiting, diarrhea or constipation. She denies any history of tooth abscess. She denies any foul smelling breath or drainage in her throat. In the ER the patient was found to be hypertensive but otherwise vitally stable. She received tylenol for pain which helped relieve her hypertension. She had a leukocytosis of 16.3. She received a head and neck CT which demonstrated swelling of the left palatine tonsil extending to the soft palate and a hypodense area measuring 2.5 x 1.4 x 1.3 cm concerning for an abscess formation. ENT was contacted through the ER with recommendations to start the patient on Zosyn. Hospitalist service admitted further evaluation and management. HOSPITAL COURSE: Patient received high dose zosyn, tylenol, dexamethasone Q8 hrs during her admission. WBC improved, she remained afebrile over 24 hours. ENT reviewed the CT but did not see a concern for drainage or further intervention outside of IV antibiotics. Swelling decreased significantly and pain with swallowing improved. On 12/12/19 after receiving 2 days of high dose abx, patient was discharged home with clindamycin 600 mg PO Q8 hrs x 14 days, probiotic BID. Patient is encouraged to f/u with PCP in 1-2 weeks after day of discharge. If she should have any increased shortness of breath, fever, chills, increased sore throat or difficulty swallowing she should come to ER immediately. REVIEW OF SYSTEMS: CONSTITUTIONAL: Denies chills, fevers. Denies unintentional weightloss. Denies night sweats HEENT: Denies choking or coughing. CARDIOVASCULAR: Denies chest pain, palpitations, or feelings of he heart racing RESPIRATORY: Denies shortness of breath. Denies coughing or wheezing GASTROINTESTINAL: Denies abdominal pain. Denies diarrhea, constipation, nausea, or vomiting GENITOURINARY: Denies dysuria, urgency, or increased frequency SKIN: Denies any rashes or lesions MUSCULOSKELETAL: Denies any muscle pain or weakness NEUROLOGICAL: Denies any changes in speech or gait. PSYCHIATRIC: Denies depression or anxiety ENDOCRINE: Denies heat or cold intolerance. Denies history of diabetes HEMATOLOGIC/LYMPHATIC: Denies easy bruising or bleeding. Denies history of DVT or PE PAST MEDICAL HISTORY: 1. Varicose Veins PAST SURGICAL HISTORY: 1. Left Foot Bunion Surgery 2. Bilateral Vein Stripping 3. Colonoscopy ~ 5 years ago SOCIAL HISTORY: Patient lives at home with her boyfriend. 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 She is a current smoker and started smoking at the age of 16. She smokes about 1/2 packs per day. She drinks alcohol on occasion. She denies any history of IV or illicit drug use FAMILY HISTORY: Patients mother and father are alive and well. She denies any medical conditions in her mother. Her father has a history of a TIA in the past ALLERGIES: Please see below. PHYSICAL EXAMINATION: CONSTITUTIONAL: No acute distress, resting comfortably, AAO x 3 EYES: PERRLA, EOM intact HENT, MOUTH: Normocephalic, moist mucous membranes, decreased redness and swelling of left tonsil with uvula deviation. No exudate noticed, no draining lesion. NECK: SUPPLE, no JVD, no lymphadenopathy, no carotid bruit CV: Regular rate and rhythm, S1S2 normal, no murmurs/rubs/gallops RESPIRATORY: Clear to auscultation bilaterally, no rales/rhonchi/wheezes GI: BS positive in 4 quadrants, soft, nontender, nondistended, no rebound or guarding, no organomegaly : Deferred MUSCULOSKELETAL: Normal ROM. No cyanosis, clubbing, swelling, joint deformity, extremity edema INTEGUMENTARY: Intact, no rashes, no lesions, no erythema NEUROLOGIC: Cranial Nerves II-XII are intact, no focal deficits PSYCHIATRIC: Mood and affect are normal DISCHARGE MEDICATIONS: Please see below LABORATORY DATA: Please see below IMAGING: CT Neck With Contrast: 1. There is swelling of the left palatine tonsil. within this region and extending to the soft palate, there is an area of hypodensity measuring approximately 2.5 x 1.4 x 1.3 cm. This is concerning for abscess. Phlegmonous change is within the differential. There is associated mild narrowing of the airway. 2. Swelling of the soft tissues of the neck on the left side. 3. There is effacement of the left vallecula, with swelling. 4. There is effacement of the left pyriform sinus. Abnormal hypodensity is identified within this region, likely representing phlegmonous change, although abscess cannot be excluded. 5. Enlarged left level 2, 3, and 5 cervical lymph nodes are identified. 6. There is swelling of the posterior hypopharyngeal wall, most significant on the left side. This swelling extends to the retropharyngeal region. 7. Hypodense thyroid nodules are identified, the largest measuring 9 mm within the right thyroid lobe. 8. Additional findings described above. ASSESSMENT: 54 y/o F treated for left peritonsillar abscess. PLAN: 1. Left peritonsillar abscess. WBC wnl, afebrile . C/w clindamycin 600 mg PO Q8hrs x 14 days, probiotic, tylenol PRN. 2. HTN. Stable. DISPOSITION: Discharging home in improved health. She has no special needs at discharge. TIME SPENT ON DISCHARGE: 25 minutes. Vital Signs/I&Os Vital Signs Date Time Temp Pulse Resp B/P (MAP) Pulse Ox O2 Delivery O2 Flow Rate FiO2 01/08/20 09:00 97.6 100 18 134/75 (94) 96 Room Air I&O- Last 24 Hours up to 6 AM 01/08/20 05:59 Intake Total 820 ml Output Total 550 ml Balance 270 ml Laboratory Data Labs 24H Laboratory Tests 2 01/08/20 06:02: Nucleated Red Blood Cells % (auto) 0.0, Erythrocyte Sedimentation Rate 56H, Anion Gap 7L, Glomerular Filtration Rate > 60.0, Calcium Level 9.2, C-Reactive Protein, Quantitative 6.73H CBC/BMP Laboratory Tests 01/08/20 06:02 Microbiology Microbiology 01/06/20 Eye/Ear/Nose/Throat Culture - Final, Complete 01/06/20 Blood Culture - Preliminary, Resulted No growth after 24 hours . All specim... Discharge Medications Scheduled Clindamycin Hcl (Cleocin HCl) 300 Mg Capsule, 600 MG PO TID Lactobacillus Acidophilus (Probiotic Acidophilus) 1.5 Mg Capsule, 1 CAP PO BID Scheduled PRN Acetaminophen (Acetaminophen) 325 Mg Tablet, 650 MG PO Q6HP PRN for PAIN / FEVER Allergies Coded Allergies: No Known Allergies (Unverified , 09/21/17) Guerda Benedict MD Jan 08, 2020 14:20
--- NOTE | 2020-01-10 18:47 | CR ---
DATE OF CONSULTATION: 01/07/2020 CHIEF COMPLAINT: Left peritonsillar cellulitis. HISTORY OF PRESENT ILLNESS: This is a 54-year-old woman presented to the emergency department at [facility] complaining of worsening of throat pain and neck swelling on 01/06/2020. She was previously seen at urgent care, in which she received intramuscular (IM) Rocephin and given a prescription for oral antibiotic approximately 4 days ago. She did not respond to oral antibiotic. She denies acute respiratory distress. She does complain of worsening sore throat from the left side as well as some swelling of the left neck. Patient has no prior history of abscess in the head and neck region. CT of the neck showed swelling of the left tonsil extending to the soft palate with a hypodense area measuring 2.5 x 1.4 x 1.3 cm, concerning for an early abscess formation. I had reviewed the films with the emergency department (ED) personnel over the phone for the initial assessment. Patient was then admitted for intravenous (IV) Zosyn. PAST MEDICAL HISTORY: Varicose veins. PAST SURGICAL HISTORY: 1. Vein stripping. 2. Left foot bunion surgery. SOCIAL HISTORY: Smoker, half pack a day. Occasional alcohol user. Denies use of illicit IV drugs. FAMILY HISTORY: Noncontributory. ALLERGIES: No known drug allergies. ALLERGIES: AUGMENTIN, as prescribed by the urgent care. REVIEW OF SYSTEMS: CONSTITUTIONAL: Fever. No weight loss or night sweats. HEENT: Sore throat and dysphagia to liquids. No coughing. CARDIOVASCULAR: Denies chest pain, palpitations. RESPIRATORY: Denies shortness of breath. GASTROINTESTINAL: Denies abdominal pain, diarrhea, constipation, nausea, vomiting. GENITOURINARY: Denies hematuria, dysuria. SKIN: No rash or ulcerations. MUSCULOSKELETAL: Noncontributory. NEUROLOGIC: Denies loss of consciousness or speech disturbance. PSYCHIATRIC: No depression or anxiety. ENDOCRINE: No cold or heat intolerance. PHYSICAL EXAMINATION: On examination, patient appears in no distress. Maximal temperature of 97.6 Fahrenheit, pulse 84, respiratory rate 18, normotensive, oxygen saturation 97% on room air. EARS: Normal pinna. Normal external auditory canals. FACE: Normocephalic. Symmetrical facial motion. NOSE: Normal nasal anatomy. ORAL CAVITY: No trismus. Oral cavity moist. Floor of mouth not elevated. Tongue mobile and moving symmetrically. Erythema of the left soft palate. Minimal bulging. Some exudates on the left tonsil area. Posterior pharyngeal wall visible with no ulcerations. NECK: Trachea midline. Left jugular digastric lymphadenopathy. Supple neck. No thyromegaly. CT neck imaging reviewed, as detailed under history of present illness (HPI). LABORATORY DATA: White count 11.3, hemoglobin 13.5. Electrolytes unremarkable. Normal PT and INR. IMPRESSION: This 54-year-old woman presented to the hospital with left peritonsillar cellulitis. Patient is responding well to IV Zosyn. Patient had significant improvement of the swelling and pain after receiving the IV antibiotic. As such, she does not require an incision and drainage procedure. At this time she is to continue with the medical management per hospitalist.
== END 2020-01-08 11:45 | disposition home or self-care (01) | DRG 113 ==
LOC: M ED 18:39 → M ED INP 22:44 → ENRESERVDT 23:04 → ENRESERVTM 23:04 → M PCU 23:40 → M PED 01-07 16:35
PROVIDERS: ADMIT Internal Medicine; ATTEND Internal Medicine
DX: J36 Peritonsillar abscess (principal); I10 Essential (primary) hypertension; D72.829 Elevated white blood cell count, unspecified; F17.200 Nicotine dependence, unspecified, uncomplicated; E04.1 Nontoxic single thyroid nodule

== ENCOUNTER → 2020-02-18 | Outpatient (REF) | payer BC ==
[~2020-02-18] MED LIST changes: +ACET1TAB55 PO; +AUGM875T28 PO; +CLEO300C2 PO; +PROB1CAP10 PO
== END ==
LOC: M LAB REF 10:37
PROVIDERS: ATTEND Registered Nurse
DX: R19.7 Diarrhea, unspecified (principal)

== ENCOUNTER → 2022-12-04 | Outpatient (CLI) | payer BC ==
[~2022-12-04] MED LIST changes: -PHEN30CA2 PO; +PHEN30CA21 PO
== END ==
LOC: M RAD 12:10
PROVIDERS: ATTEND Physician Assistant Medical
DX: R55 Syncope and collapse (principal)

== ENCOUNTER → 2023-01-05 | Outpatient (CLI) | payer BC | LOC: M WHC 09:56 | PROVIDERS: ATTEND Nurse Practitioner Adult Health | DX: Z12.31 Encounter for screening mammogram for malignant neoplasm of breast (principal) ==

== ENCOUNTER → 2023-02-03 | Outpatient (CLI) | payer BC | LOC: M RAD 10:27 | PROVIDERS: ATTEND Nurse Practitioner Adult Health | DX: R55 Syncope and collapse (principal) ==

== ENCOUNTER → 2023-04-02 | Outpatient (CLI) | payer BC | LOC: M WHC 09:16 | PROVIDERS: ATTEND Nurse Practitioner Adult Health | DX: E04.1 Nontoxic single thyroid nodule (principal) ==

== ENCOUNTER → 2023-08-10 | Outpatient (REF) | payer BC | LOC: M LAB REF 08:17 | PROVIDERS: ATTEND Internal Medicine Endocrinology, Diabetes & Metabolism | DX: E04.2 Nontoxic multinodular goiter (principal) ==

== ENCOUNTER 2023-08-30 07:12 | Day surgery (SDC) | payer BC ==
[~2023-08-30] VITALS: Ht 172.7 cm; Wt 93.8 kg
[~2023-08-30 07:12] MED LIST changes: +NOXI1TAB PO; +NS 1,000 ML IV ONE
[2023-08-30] MEDS ORDERED: propofoL 200 MG/20 ML VIAL As Ordered ONE ×3 (08:19→08:58)
[2023-08-30 08:52] VITALS: TEMP 97.5
[2023-08-30 09:06] VITALS: BP 124/74; O2SAT 98
== END 2023-08-30 09:13 | disposition home or self-care (01) ==
LOC: M OPP 07:12
PROVIDERS: ATTEND Internal Medicine Gastroenterology
DX: Z12.11 Encounter for screening for malignant neoplasm of colon (principal); D12.6 Benign neoplasm of colon, unspecified; K64.0 First degree hemorrhoids; K57.30 Diverticulosis of large intestine without perforation or abscess without bleeding; Z86.010 Personal history of colon polyps; F17.210 Nicotine dependence, cigarettes, uncomplicated; I73.00 Raynaud's syndrome without gangrene; E04.2 Nontoxic multinodular goiter

== ENCOUNTER → 2024-06-21 | Outpatient (CLI) | payer BC ==
[~2024-06-21] MED LIST changes: -NS 1,000 ML IV ONE
== END ==
LOC: M WHC 06:52
PROVIDERS: ATTEND Nurse Practitioner Adult Health
DX: Z12.31 Encounter for screening mammogram for malignant neoplasm of breast (principal)

== ENCOUNTER → 2025-06-22 | Outpatient (CLI) | payer BC | LOC: M WHC 06:49 | PROVIDERS: ATTEND Nurse Practitioner Adult Health | DX: Z12.31 Encounter for screening mammogram for malignant neoplasm of breast (principal); R92.323 Mammographic fibroglandular density, bilateral breasts ==